=== PATIENT | female | born 1975 | race Caucasian/White ===

== ENCOUNTER 2022-05-12 12:57 | Outpatient (CLI) | payer OTHER ==
[2022-05-12 15:20] LABS: ALBUMIN 3.9 g/dL (3.4-5.0); ANION GAP 11.3 (8-16); CARBON DIOXIDE 29.7 mmol/L (21-32); CREATININE 0.6 mg/dL (0.6-1.3); TOTAL BILIRUBIN 0.6 mg/dL (0.0-1.0)
[2022-05-13 15:06] LABS: FOLIC ACID > 20.00 ng/mL (>3.0)
[2022-05-13 19:22] LABS: FOLIC ACID > 20.00 ng/mL (>3.0)
== END 2022-05-12 20:50 | disposition home or self-care (01) ==
LOC: MLB 12:57
PROVIDERS: ATTEND Family Medicine
DX: I10 Essential (primary) hypertension (principal); R79.89 Other specified abnormal findings of blood chemistry; E55.9 Vitamin D deficiency, unspecified
CPT/HCPCS: 36415; 80053; 82306; 82607; 82746